=== PATIENT | male | born 1985 | race Caucasian/White ===

== ENCOUNTER → 2024-04-12 10:32 | Outpatient (CLI) | payer BC, SELFPAY ==
[2024-04-12 11:35] LABS: Creatinine Urine Random 141.19 mg/dL
[2024-04-12 11:50] LABS: Microalbumin Urine Random < 0.6 mg/dL (0-1.6)
[2024-04-12 12:20] LABS: Hemoglobin A1C% w Est Avg Glu 5.4 % (4.0-6.0)
[2024-04-12 12:34] LABS: Alanine Aminotransferase 47 IU/L (<50); Albumin 4.7 g/dL (3.5-5.0); Albumin Globulin Ratio 1.7 (1.0-2.8); Alkaline Phosphatase 73 U/L (38-126); Aspartate Aminotransferase 29 IU/L (17-59); BUN Creatinine Ratio 15.2 (6-22); Bilirubin Total 0.7 mg/dL (0.2-1.3); Blood Urea Nitrogen 17 mg/dL (9-20); Calcium 9.7 mg/dL (8.4-10.2); Carbon Dioxide 24 mmol/L (22-32); Chloride 106 mmol/L (98-107); Cholesterol 251 mg/dL (140-199); Estimated Glomerular Filt Rate > 60 mL/min (>60); Globulin 2.7 g/dL (1.7-4.1); Glucose 97 mg/dL (70-100); HDL Cholesterol 52 mg/dL (40-60); HEMOLYSIS < 15 (0-50); LDL Cholesterol Calculated 145 mg/dL (<100); Potassium 4.4 mmol/L (3.4-5.1); Sodium 139 mmol/L (137-145); Total Protein 7.4 g/dL (6.3-8.2); Triglycerides 271 mg/dL (35-150)
== END ==
LOC: LAB 10:34
PROVIDERS: PCP Family Medicine; Referring Provider Family Medicine; Visit Provider Family Medicine
DX: Z13.1 Encounter for screening for diabetes mellitus (principal); I10 Essential (primary) hypertension
CPT/HCPCS: 36415; 80053; 80061; 82043; 82570; 83036

== ENCOUNTER 2025-03-25 11:21 | Day surgery (SDC) | payer BC, SELFPAY ==
[2025-03-15 09:52] VITALS: BMI 26.3
--- NOTE | 2025-03-25 | PATH_ITS ---
[facility] Accession Number: [id number] No. of containers..07 Tissue . 01 Material submitted: . PART A: duodenum - DUODENAL PART B: stomach - STOMACH, ANTRAL PART C: small bowel - ILEUM, TERMINAL PART D: colon - COLON, PROXIMAL PART E: colon - COLON, MID PART F: colon - COLON, DISTAL PART G: colon - DESCENDING POLYP . 01 Diagnosis: Part A: DUODENAL: Duodenal mucosa with no diagnostic alterations. No active inflammation and no evidence of celiac disease. . Part B: STOMACH, ANTRAL: Gastric antral mucosa with no diagnostic alterations. No Helicobacter organisms identified on H/E stain. No intestinal metaplasia, dysplasia, or malignancy identified. . Part C: ILEUM, TERMINAL: Ileal mucosa with no diagnostic alterations. No active inflammation, granulomas, or dysplasia identified. . Part D: COLON, PROXIMAL: Colonic mucosa with no diagnostic alterations. No active inflammation, granulomas, dysplasia, or malignancy identified. No evidence of colitis. . Part E: COLON, MID: Colonic mucosa with no diagnostic alterations. No active inflammation, granulomas, dysplasia, or malignancy identified. No evidence of colitis. . Part F: COLON, DISTAL: Colonic mucosa with no diagnostic alterations. No active inflammation, granulomas, dysplasia, or malignancy identified. No evidence of colitis. . Part G: DESCENDING POLYP: Benign submucosal leiomyoma. [facility] 04/01/2025 1517 Local . 01 Electronically signed: . Vamshi Fitch MD, Pathologist NPI- [id number] . 01 Gross description: . A. Received in formalin labeled with two patient identifiers and duodenal biopsy, are two aly tissue fragments ranging from less than 0.1 to 0.2 cm. Entirely submitted in cassette A1. . B. Received in formalin labeled with two patient identifiers and antral biopsy, are two aly tissue fragments ranging from 0.2 to 0.3 cm. Entirely submitted in cassette B1. . C. Received in formalin labeled with two patient identifiers and terminal ileum, are two aly tissue fragments, both 0.2 cm. Entirely submitted in cassette C1. . D. Received in formalin labeled with two patient identifiers and proximal colon, are two aly tissue fragments ranging from 0.2 to 0.3 cm. Entirely submitted in cassette D1. . E. Received in formalin labeled with two patient identifiers and mid colon, are two aly tissue fragments ranging from 0.2 to 0.4 cm. Entirely submitted in cassette E1. . F. Received in formalin labeled with two patient identifiers and distal colon, are two aly tissue fragments, both 0.2 cm. Entirely submitted In cassette F1. . G. Received in formalin labeled with two patient identifiers and descending polyp, is a 0.8 cm aly-brown portion of tissue. Entirely submitted in cassette G1. (MO:[id number]) /MICAELA 04/01/2025 1517 Local . 01 Microscopic: . Part G: DESCENDING POLYP: There is normal appearing colonic mucosa with an underlying submucosal nodule composed of whorled bands and bundles of spindled cells. There is no significant nuclear atypia or increase in mitotic activity. The spindled cells are positive for SMA and negative for DOG1 by immunostain, supporting a diagnosis of leiomyoma and providing no evidence of gastrointestinal stromal tumor. Focal stromal changes are seen near vessels, and a Congo red stain is performed to rule out the possibility of amyloid deposition. This is negative, providing no evidence of amyloid. All controls stain as expected . 01 Pathologist provided ICD-10: D12.4 . 01 CPT . 249074, 247085, 228458, 626952, 992578, 657900, 830902, [id number], [id number], [id number] Specimen Comment: A courtesy copy of this report has been sent to [phone] Performed at: [facility] [address], [place], [place] [id number] MD Vamshi Fitch MD Phone: [phone]
[2025-03-25 11:40] VITALS: BP 154/90; PULSE 80; RESP 16; TEMP 36.2; O2SAT 98
[2025-03-25] MEDS: LACTATED RINGERS 1,000 ML 84 ML IV (11:51)
--- NOTE | 2025-03-25 12:19 | PM.PREOP ---
Pre-operative Note COVID-19 COVID-19 status: Not tested Interval Note History & Physical reviewed/Exam performed by Physician: Yes Changes to H&P: No ASA Class (for procedural sedation): II
--- NOTE | 2025-03-25 12:20 | PM.HP.IH.1 ---
History of Present Illness History of Present Illness Date Patient Seen: 03/25/25 Time Patient Seen: 12:20 Chief complaint: SDC Narrative: Rocky is a 40-year-old man who presented with a change in bowel function. See the office note from January for details. [facility] Medical History (Updated 01/25/25 @ 10:43 by Vinayak Olea MD) Essential hypertension Social History Smoking Status: Current some day smoker Meds Home Medications and Allergies Home Medications ?Medication ?Instructions ?Recorded ?Confirmed ?Type sodium,potassium,mag sulfates 17.5 See Rx Instructions PO .COMPLEX 02/08/25 Rx gram-3.13 gram-1.6 gram oral soln #354 mL (Suprep Bowel Prep Kit) Allergies Allergy/AdvReac Type Severity Reaction Status Date / Time No Known Drug Allergies Allergy Unverified 01/25/25 10:20 Exam Vital Signs (past 8 hours): - 03/25/25 11:40 Temperature 97.2 F L Pulse Rate 80 Respiratory Rate 16 Blood Pressure 154/90 H Pulse Oximetry 98 Oxygen Delivery Method Room Air Oxygen Delivery Method Room Air Const General: healthy appearing Assessment & Plan Assessment and plan (1) Change in bowel function: Status: Acute Plan EGD and colonoscopy Time-Based Coding :: [TOTAL MINUTES] spent with patient and on the chart (including review of chart, obtaining history, exam, reviewing outside data, placing orders, documenting exam and treatment plan, and counseling patient) on [DATE]. [employer] Scientist Document charge(s): No
[2025-03-25 13:03] VITALS: BP 91/55; PULSE 70; RESP 22; TEMP 36; O2SAT 98
--- NOTE | 2025-03-25 13:04 | PM.OP.EC ---
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 A bite blocked was placed and monitors were attached to the patient. The patient was positioned in the left lateral decubitus position. Sedation was administered. Once the patient was sedated the endoscope was inserted through the bite block and passed through the esophagus and stomach and into the duodenum. No obvious abnormalities were noted. The sphincter of Oddi was well seen. Random biopsies were taken from the duodenal mucosa with the cold forceps. We then withdrew the scope into the stomach. No antral ulcers antritis was seen. Random biopsies were taken from the antrum with cold forceps. The endoscope was retroflexed and no hiatal hernia was seen. The endoscope was straightned and withdrawn into the esophagus. No abnormalities were seen in the esophagus. EGD findings: Grossly normal EGD, random biopsies taken from the duodenum and antrum Next we repositioned the patient for a colonoscopy. A digital rectal exam was performed and was normal. The colonoscope was inserted and advanced to the cecum. The appendiceal orifice was identified and photographed. The scope was slowly withdrawn over greater than 6 minutes. The terminal ileum was intubated and no abnormalities were seen. Random biopsies were taken from the ileal mucosa with the cold forceps. Random biopsies were taken from the proximal, mid and distal colon. There was a 7 mm polyp in the descending colon removed with a cold snare. The scope was retroflexed in the rectum and no other abnormalities were seen. Colonoscopy findings: Grossly normal colon and terminal ileum mucosa, 7 mm polyp in the descending colon Scope withdrawal time: 14 minutes Sedation minutes: 28 minutes Estimated Blood Loss: 5 Complications: none Post-procedure Disposition: PACU
[2025-03-25 13:05] VITALS: BP 109/57; PULSE 67; RESP 20; O2SAT 98
[2025-03-25 13:10] VITALS: BP 110/55; PULSE 75; RESP 20; TEMP 36.1; O2SAT 98
[2025-03-25 13:14] VITALS: BP 110/55; PULSE 64; RESP 18; TEMP 36.1; O2SAT 98
[2025-03-25 13:48] VITALS: BP 154/90; PULSE 80; RESP 16; TEMP 36.2; O2SAT 98
== END 2025-03-25 14:00 | disposition home or self-care (01) ==
PROVIDERS: PCP Family Medicine; Referring Provider Surgery; Visit Provider Surgery
PROC: 0DJ08ZZ Inspection of Upper Intestinal Tract, Via Natural or Artificial Opening Endoscopic (ICD-10-PCS; CPT 45385; principal; 2025-03-25 12:30)
PROC: 0DJD8ZZ Inspection of Lower Intestinal Tract, Via Natural or Artificial Opening Endoscopic (ICD-10-PCS; CPT 45378; 2025-03-25 12:30)
DX: R19.4 Change in bowel habit (principal); F17.210 Nicotine dependence, cigarettes, uncomplicated; D12.4 Benign neoplasm of descending colon
CPT/HCPCS: 45385; 45380; 43239; J2704; J7120